=== PATIENT | male | born 1990 | race Caucasian/White ===

== ENCOUNTER 2017-12-19 14:32 | Emergency (ER) | payer SELFPAY ==
[2017-12-19 14:39] VITALS: BP 123/85
--- NOTE | 2017-12-19 15:00 | EDPHY ---
H & P Smoking Status: Current every day smoker Time Seen by Provider: 12/19/17 14:49 HPI/ROS: CHIEF COMPLAINT: Odontalgia HISTORY OF PRESENT ILLNESS: 27-year-old homeless male history of poor dentition , history of recurrent dental disease complaining of recurrent left mandibular molar pain for the past several days. Atraumatic. No fever no chills. No fetid odor. No foul taste in mouth. No facial swelling. No trismus no drooling. No submandibular submental pain. PHYSICAL EXAM (Prior to examination, patient consented to physical exam, hands were washed and my usual and customary physical exam procedures followed) 1) GENERAL: Well-developed, well-nourished, alert and oriented. Appears nontoxic. 2) HEAD: Normocephalic 3) HEENT: sclera anicteric. Poor dentition. Nasolabial folds are symmetrical. No trismus no drooling. Tender to percussion tooth 20 and 19 with no evidence of apical abscess. Floor of mouth soft with no induration, no [place] appearance . Submental and submandibular spaces are soft no induration no erythema 4) LUNGS: Breathing comfortably. [ (Gayla Almanzar) Constitutional: Initial Vital Signs Temperature (C) 36.7 C 12/19/17 14:37 Heart Rate 85 12/19/17 14:37 Respiratory Rate 16 12/19/17 14:37 Blood Pressure 123/85 H 12/19/17 14:37 O2 Sat (%) 95 12/19/17 14:37 O2 Delivery Mode Room Air Allergies/Adverse Reactions: No Known Allergies Allergy (Unverified 12/19/17 14:37) Home Medications: Medication Instructions Recorded Amoxicillin/Clavulanate Pot 875 mg PO BID #14 tab 12/19/17 [Augmentin 875 mg tab] Hydrocodone/APAP 5/325 [[place] 1 tab PO Q6 PRN #7 tab 12/19/17 5/325 (RX)] MDM/Departure - MDM Procedures: Procedure: Dental nerve block, inferior alveolar nerve block Indication: Odontalgia Indications risks benefits discussed with patient. 0.5% plain bupivacaine administered in usual and customary fashion. Patient tolerated procedure well ( Gayla Almanzar) ED Course/Re-evaluation: No evidence of Alex's angina or deep space infection. I do not think that imaging is indicated. Plan will be outpatient follow-up with dental late. I left a message with the [facility] aid 24 hr phone line. Care of patient under supervision of secondary supervising physician Dr Martin . (Gayla Almanzar) 5:00 p.m. [facility] called and I gave him the patient's information. They will call him. (James Martin) - Depart Disposition: Home, Routine, Self-Care Clinical Impression: Atypical odontalgia Condition: Good Instructions: Toothache (ED) Additional Instructions: Return to the ER immediately if you cannot swallow, have drooling, fevers, neck stiffness, cannot open your jaw, or any other symptoms that concern you. Prescriptions: Amoxicillin/Clavulanate Pot [Augmentin 875 mg tab] 875 mg PO BID #14 tab Hydrocodone/APAP 5/325 [[place] 5/325 (RX)] 1 tab PO Q6 PRN #7 tab PRN Reason: Pain, Severe Referrals: [facility] [Outside] - 2-3 days, call for appt.
== END 2017-12-19 15:15 | disposition home or self-care (01) ==
DX: K08.89 Other specified disorders of teeth and supporting structures (principal); F17.200 Nicotine dependence, unspecified, uncomplicated

== ENCOUNTER 2017-12-20 12:16 | Emergency (ER) | payer SELFPAY ==
--- NOTE | 2017-12-20 13:16 | EDPHY ---
H & P Time Seen by Provider: 12/20/17 13:00 HPI/ROS: Chief complaint. Dental pain HPI. 27-year-old male with 2 day history of left lower dental pain. No trauma to the tooth. He thinks is from cavity. He was seen yesterday in the emergency department. He was started on Augmentin and hydrocodone. [facility] was called but sounds like did not call back until after the patient had left. Patient is transient and homeless. No other complaints. No fever or swelling. He had a dental block placed yesterday and asked for a another dental block. ROS Constitutional. no fever/chills, no weakness Eyes. no problems with vision ENT. Left tooth pain Cardiovascular. no chest pain Respiratory. no shortness of breath, no cough Abdominal. no abdominal pain, no nausea/vomiting, no diarrhea . no problems urinating MS. no calf pain/swelling, no neck/back pain, no joint pain Skin. no rash Lymph. no swollen glands Neuro. no headache, no dizziness, no difficulty walking or with speech Past Medical/Surgical History: Appendectomy Social History: Single, daily smoker, no alcohol Smoking Status: Current every day smoker Physical Exam: General Appearance: Alert well-developed male mild distress vital signs are stable Eyes: Pupils equal and round no pallor or injection. ENT, left mandible show some tenderness to the the the 3rd premolar. No obvious swelling. There is some dental caries. No abscess Respiratory: There are no retractions, lungs are clear to auscultation. Cardiovascular: Regular rate and rhythm. Gastrointestinal: Abdomen is soft and nontender, no masses, bowel sounds normal. Neurological: Awake and alert, sensory and motor exams grossly normal. Skin: Warm and dry, no rashes. Musculoskeletal: Neck is supple nontender. Extremities symmetrical, full range of motion. Psychiatric: Patient is oriented X 3, there is no agitation. Constitutional: Initial Vital Signs Temperature (C) 37 C 12/20/17 12:18 Heart Rate 70 12/20/17 12:18 Respiratory Rate 20 12/20/17 12:18 Blood Pressure 140/90 H 12/20/17 12:18 O2 Sat (%) 96 12/20/17 12:18 O2 Delivery Mode Room Air Allergies/Adverse Reactions: No Known Allergies Allergy (Verified 12/20/17 12:18) Home Medications: Medication Instructions Recorded Amoxicillin/Clavulanate Pot 875 mg PO BID #14 tab 12/19/17 [Augmentin 875 mg tab] Hydrocodone/APAP 5/325 [[place] 1 tab PO Q6 PRN #7 tab 12/19/17 5/325 (RX)] Medical Decision Making Procedures: 2% lidocaine is placed on a 2 x 2 gauze and placed in area for injection. Ibuprofen 800 mg Call is placed to dental aid at 1:20 p.m. [facility] a return call at 2:10 p.m. They will see the patient at 3:00 p.m. Today and heard [place] office sales enablement manager will give the patient a bus pass as he is on a bicycle. ED Course/Re-evaluation: As the patient will be seen by dental aid in about 45 min no block is performed. Patient given a bus pass he will keep his appointment. He expresses understanding and agreement with this plan Differential Diagnosis: Dental caries, abscess, gingivitis - Data Points Medications Given: Discontinued Medications Ibuprofen (Motrin) 800 mg PO EDNOW ONE Stop: 12/20/17 13:28 Last Admin: 12/20/17 13:33 Dose: 800 mg Lidocaine (Lidocaine 2% Viscous) 5 ml PO EDNOW ONE Stop: 12/20/17 13:27 Last Admin: 12/20/17 13:33 Dose: 5 ml Departure - Departure Disposition: Home, Routine, Self-Care Clinical Impression: Pain, dental Condition: Good Instructions: Toothache (ED) Additional Instructions: [facility] will see you today at 3:00 p.m.. It is at their [place] office and the address is [address] [place] [id number] Referrals: NONE *PRIMARY CARE P,. [Primary Care Provider] - As per Instructions [facility] [Outside] - As per Instructions
[2017-12-20] MEDS ORDERED: LIDOCAINE 2% VISCOUS 15 ML UDCUP PO ONE (13:26)
[2017-12-20] MEDS ORDERED: IBUPROFEN 800 MG TAB PO ONE (13:27)
[2017-12-20 14:27] VITALS: BP 140/75
== END 2017-12-20 14:31 | disposition home or self-care (01) ==
DX: K08.89 Other specified disorders of teeth and supporting structures (principal); F17.200 Nicotine dependence, unspecified, uncomplicated

== ENCOUNTER 2017-12-22 19:46 | Emergency (ER) | payer SELFPAY ==
[2017-12-22 19:52] VITALS: BP 155/82; PULSE 102; RESP 16; TEMP 99.3; O2SAT 96
--- NOTE | 2017-12-22 20:09 | EDPHY ---
H & P Time Seen by Provider: 12/22/17 19:55 HPI/ROS: CHIEF COMPLAINT: Continued odontalgia HISTORY OF PRESENT ILLNESS: 27-year-old homeless male seen the ER twice in the past 2 days for complaints of odontalgia. His last emergency department visit appointment was made at [facility] however states that he was unable to go to his appointment because he was not sure where it was located. He continues to take Augmentin and hydrocodone. He notes that when he had dental nerve block this provided several hours of relief. He is requesting repeat dental nerve block. He denies further complaints. Denies: Trismus, drooling, fever, chills, foul taste, fetid odor. PHYSICAL EXAM (Prior to examination, patient consented to physical exam, hands were washed and my usual and customary physical exam procedures followed) 1) GENERAL: Well-developed, well-nourished, alert and oriented. Appears to be in no acute distress. 2) HEAD: Normocephalic 3) HEENT: sclera anicteric . Left mandibular 3rd premolar is tender to percussion with no evidence of apical abscess. Floor of mouth soft no induration, no evidence of Alex's angina. Submandibular and submental spaces are soft no erythema no induration no tenderness. 4) LUNGS: Breathing comfortably. Smoking Status: Current every day smoker Constitutional: Initial Vital Signs Temperature (C) 37.4 C 12/22/17 19:50 Heart Rate 102 H 12/22/17 19:50 Respiratory Rate 16 12/22/17 19:50 Blood Pressure 155/82 H 12/22/17 19:50 O2 Sat (%) 96 12/22/17 19:50 O2 Delivery Mode Room Air Allergies/Adverse Reactions: No Known Allergies Allergy (Verified 12/20/17 12:18) Home Medications: Medication Instructions Recorded Amoxicillin/Clavulanate Pot 875 mg PO BID #14 tab 12/19/17 [Augmentin 875 mg tab] Hydrocodone/APAP 5/325 [[place] 1 tab PO Q6 PRN #7 tab 12/19/17 5/325 (RX)] MDM/Departure - MDM Procedures: Procedure: Dental nerve block Indications: Odontalgia Indications risks benefits discussed with patient. 1% plain lidocaine inferior alveolar nerve block administered by myself in my usual and customary fashion. Patient tolerated procedure well. No immediate adverse effects. ED Course/Re-evaluation: 8:10 p.m.: I left message with the dental aid voicemail with no patient identifying information. Patient has been given dental aid follow-up information. Dental nerve block was placed by myself resulting in anesthesia pain relief. Recommended continued antibiotics. No evidence of Alex's angina or deep space infection. No indication for imaging at this time. He feels comfortable being discharged. Today is Monday. Recommend he follow up at dental aid on Monday. Recommend he continue with his antibiotics. Care of patient under supervision of secondary supervising physician Dr Anthony. - Depart Disposition: Home, Routine, Self-Care Clinical Impression: Odontalgia Condition: Good Instructions: Toothache (ED) Additional Instructions: Keep taking your antibiotics and pain medicine. You need to follow up with dental aid. Referrals: [facility] [Outside] - 12/25/17
== END 2017-12-22 20:27 | disposition home or self-care (01) ==
PROC: 3E0X3BZ Introduction of Anesthetic Agent into Cranial Nerves, Percutaneous Approach (ICD-10-PCS; principal; 2017-12-22)
DX: K08.89 Other specified disorders of teeth and supporting structures (principal); F17.200 Nicotine dependence, unspecified, uncomplicated